=== PATIENT | female | born 1935 | race Caucasian/White ===

== ENCOUNTER 2019-06-23 12:45 | Emergency (ER) | payer OTHER ==
[~2019-06-23] VITALS: Ht 160 cm; Wt 66.2 kg
[2019-06-23] MEDS ORDERED: FORTAMET500 MG (13:04)
[2019-06-23] MEDS ORDERED: COZAAR25 MG (13:04)
[2019-06-23] MEDS ORDERED: LEVOTHYROXINE25 MCG (13:05)
[2019-06-23] MEDS ORDERED: GLIPIZIDE ER5 MG (13:05)
[2019-06-23] MEDS ORDERED: ZOLOFT25 MG (13:05)
[2019-06-23] MEDS ORDERED: DUI500 PO (16:25)
== END 2019-06-23 16:31 | disposition home or self-care (01) ==
LOC: ER 12:45
DX: L03.032 Cellulitis of left toe (principal); M17.11 Unilateral primary osteoarthritis, right knee

== ENCOUNTER 2020-04-12 11:36 | Emergency (ER) | payer OTHER ==
[~2020-04-12] VITALS: Ht 157.5 cm; Wt 45.4 kg
[~2020-04-12 11:36] MED LIST: COZAAR25 MG; DUI500 PO; FORTAMET500 MG; GLIPIZIDE ER5 MG; LEVOTHYROXINE25 MCG; ZOLOFT25 MG
[2020-04-12] MEDS ORDERED: CELEBREX100 MG PO (17:25)
== END 2020-04-12 17:55 | disposition home or self-care (01) ==
LOC: ER 11:36
DX: S00.12XA Contusion of left eyelid and periocular area, initial encounter (principal); S00.83XA Contusion of other part of head, initial encounter; S70.02XA Contusion of left hip, initial encounter; M54.2 Cervicalgia; R10.2 Pelvic and perineal pain; W01.198A Fall on same level from slipping, tripping and stumbling with subsequent striking against other object, initial encounter; Y93.89 Activity, other specified; Y92.018 Other place in single-family (private) house as the place of occurrence of the external cause; Y99.8 Other external cause status